=== PATIENT | male | born 1985 | race American Indian/Alaskan Native ===

== ENCOUNTER 2017-08-30 22:57 | Emergency (ER) | payer SELFPAY ==
[2017-08-31] MEDS ORDERED: ASPIRIN PO ONE (00:20)
--- NOTE | 2017-08-31 00:42 | XRay Report ---
FINAL REPORT EXAM: XR CHEST ROUTINE 2V HISTORY: chestpain TECHNIQUE: PA and lateral views of the chest were submitted. FINDINGS: The heart size and mediastinum appear normal. The lungs are clear. Pleural fluid is not seen. The bones and soft tissues do not show any acute changes. IMPRESSION: No active chest disease.
[2017-08-31 00:48] LABS: Basophils % (Auto) 0.5 % (0.0-1.8); Eosinophils # (Auto) 0.2 K/mm3 (0.0-0.4); Eosinophils % (Auto) 1.9 % (0.0-4.3); Hematocrit 43.9 % (35.5-45.6); Hemoglobin 14.3 gm/dl (11.8-15.2); Lymphocytes # (Auto) 2.5 K/mm3 (1.2-5.4); Lymphocytes % (Auto) 26.3 % (13.4-35.0); Mean Corpuscular HGB Conc 33 % (32-34); Mean Corpuscular Volume 71 fl (84-94); Monocytes # (Auto) 1.3 K/mm3 (0.0-0.8); Monocytes % (Auto) 13.7 % (0.0-7.3); Platelet Count 256 K/mm3 (140-440); Red Blood Count 6.15 M/mm3 (3.65-5.03); Red Cell Distribution Width 15.1 % (13.2-15.2)
[2017-08-31 01:00] LABS: Mean Corpuscular Hemoglobin 23 pg (28-32)
[2017-08-31] MEDS ORDERED: MOTRIN PO ONE (01:08)
[2017-08-31] MEDS ORDERED: NORCO 5/325 PO ONE (01:08)
[2017-08-31 01:17] LABS: BUN/Creatinine Ratio 12; Blood Urea Nitrogen 13 mg/dL (9-20); Hemolysis Index 16
--- NOTE | 2017-08-31 02:57 | Emergency Department Report ---
ED Chest Pain HPI - General Chief Complaint: Chest Pain Stated Complaint: CHEST/BACK PAIN Time Seen by Provider: 08/31/17 01:03 Source: patient Mode of arrival: Ambulatory Limitations: No Limitations - History of Present Illness Initial Comments: Patient is a 31-year-old -[place] male presenting with chest pain. Patient states the pain is left-sided chest and radiates to his back. Patient states that it hurts when he moves and when he takes deep breath. Patient states he has no cough currently but did have a cough around 2-3 weeks ago that was last several days. Patient denies shortness of breath fevers chills nausea vomiting diaphoresis at this time. Severity scale (0 -10): 9 Quality: sharp Improves With: nothing - Related Data Previous Rx's Medication Instructions Recorded Last Taken Type predniSONE [Deltasone] 20 mg PO QDAY #5 tab 08/31/17 Unknown Rx traMADol [Ultram] 50 mg PO Q6HR PRN #12 tablet 08/31/17 Unknown Rx Allergies Allergy/AdvReac Type Severity Reaction Status Date / Time No Known Allergies Allergy Verified 08/31/17 01:09 Heart Score - HEART Score History: Slightly suspicious EKG: Normal Age: < 45 Risk factors: No known risk factors Troponin: < normal limit HEART Score: 0 ED Review of Systems ROS: Stated complaint: CHEST/BACK PAIN Other details as noted in HPI Comment: All other systems reviewed and negative ED Past Medical Hx - Past Medical History Previous Medical History?: No - Surgical History Past Surgical History?: No Additional Surgical History: Back - Social History Smoking Status: Former Smoker Substance Use Type: None - Medications Home Medications: Home Medications Medication Instructions Recorded Confirmed Last Taken Type predniSONE [Deltasone] 20 mg PO QDAY #5 tab 08/31/17 Unknown Rx traMADol [Ultram] 50 mg PO Q6HR PRN #12 tablet 08/31/17 Unknown Rx ED Physical Exam - General Limitations: No Limitations General appearance: alert, in no apparent distress - Head Head exam: Present: atraumatic, normocephalic - Eye Eye exam: Present: normal appearance - ENT ENT exam: Present: mucous membranes moist - Neck Neck exam: Present: normal inspection - Respiratory Respiratory exam: Present: normal lung sounds bilaterally. Absent: respiratory distress - Cardiovascular Cardiovascular Exam: Present: regular rate, normal rhythm. Absent: systolic murmur, diastolic murmur, rubs, gallop - GI/Abdominal GI/Abdominal exam: Present: soft, normal bowel sounds - Rectal Rectal exam: Present: deferred - Extremities Exam Extremities exam: Present: normal inspection - Back Exam Back exam: Present: normal inspection - Neurological Exam Neurological exam: Present: alert, oriented X3 - Psychiatric Psychiatric exam: Present: normal affect, normal mood - Skin Skin exam: Present: warm, dry, intact, normal color. Absent: rash ED Course Vital Signs 08/31/17 08/31/17 00:15 01:00 Temperature 99.2 F Pulse Rate 90 86 Respiratory 18 17 Rate Blood Pressure 146/72 120/73 O2 Sat by Pulse 97 100 Oximetry ED Medical Decision Making - Lab Data Result diagrams: 08/31/17 00:26 08/31/17 00:26 Lab Results 08/31/17 08/31/17 08/31/17 Range/Units 00:26 00:26 01:11 WBC 9.6 (4.5-11.0) K/mm3 RBC 6.15 H (3.65-5.03) M/mm3 Hgb 14.3 (11.8-15.2) gm/dl Hct 43.9 (35.5-45.6) % MCV 71 L (84-94) fl MCH 23 L (28-32) pg MCHC 33 (32-34) % RDW 15.1 (13.2-15.2) % Plt Count 256 (140-440) K/mm3 Lymph % (Auto) 26.3 (13.4-35.0) % [place] % (Auto) 13.7 H (0.0-7.3) % Eos % (Auto) 1.9 (0.0-4.3) % Baso % (Auto) 0.5 (0.0-1.8) % Lymph # 2.5 (1.2-5.4) K/mm3 [place] # 1.3 H (0.0-0.8) K/mm3 Eos # 0.2 (0.0-0.4) K/mm3 Baso # 0.0 (0.0-0.1) K/mm3 Seg Neutrophils % 57.6 (40.0-70.0) % Seg Neutrophils # 5.5 (1.8-7.7) K/mm3 D-Dimer < 135 (0-234) ng/mlDDU Sodium 137 (137-145) mmol/L Potassium 4.0 (3.6-5.0) mmol/L Chloride 96.8 L (98-107) mmol/L Carbon Dioxide 27 (22-30) mmol/L Anion Gap 17 mmol/L BUN 13 (9-20) mg/dL Creatinine 1.1 (0.8-1.5) mg/dL Estimated GFR > 60 ml/min BUN/Creatinine Ratio 12 % Glucose 90 (75-100) mg/dL Calcium 9.0 (8.4-10.2) mg/dL Troponin T < 0.010 (0.00-0.029) ng/mL - EKG Data -: EKG Interpreted by Ut EKG shows normal: sinus rhythm, axis, intervals, QRS complexes, ST-T waves Rate: normal - EKG Data Interpretation: normal EKG - Radiology Data Radiology results: report reviewed No acute process chest x-ray - Medical Decision Making Patient is a 31-year-old asthmatic male who is presenting with chest pain. Patient laboratory studies x-ray EKG are within normal limits. Patient most likely has a pleurisy secondary to recent viral infection or from smoking a vape which is new for him Critical care attestation.: If time is entered above; I have spent that time in minutes in the direct care of this critically ill patient, excluding procedure time. ED Disposition Clinical Impression: Pleurisy Disposition: DC-01 TO HOME OR SELFCARE Is pt being admited?: No Does the pt Need Aspirin: No Condition: Stable Instructions: Pleurisy (ED) Prescriptions: predniSONE [Deltasone] 20 mg PO QDAY #5 tab traMADol [Ultram] 50 mg PO Q6HR PRN #12 tablet PRN Reason: Pain Referrals: OBDULIA CHRISTIANSON MD [Primary Care Provider] - 3-5 Days
[2017-08-31 03:37] VITALS: BP 107/66
== END 2017-08-31 03:39 | disposition home or self-care (01) ==
LOC: ED 22:57
DX: R09.1 Pleurisy (principal)
CPT/HCPCS: 36415; 71046; 80048; 84484; 85025; 85379; 93005; 93010; 99284